=== PATIENT | female | born 1985 | race Caucasian/White ===

== ENCOUNTER 2017-11-10 23:33 | Emergency (ER) | payer SELFPAY | END 2017-11-11 00:32 | disposition home or self-care (01) | LOC: ERS 23:33 | DX: L50.9 Urticaria, unspecified (principal); G40.909 Epilepsy, unspecified, not intractable, without status epilepticus; G43.909 Migraine, unspecified, not intractable, without status migrainosus; J45.909 Unspecified asthma, uncomplicated | CPT/HCPCS: 99282 ==

== ENCOUNTER 2018-06-03 17:08 | Emergency (ER) | payer SELFPAY ==
[2018-06-03 17:31] LABS: Bilirubin Negative (Negative); Blood, Urine Negative (Negative); Clarity CLEAR (Clear); Glucose, Urine (Dipstick) Negative (Negative); Leukocyte Small (Negative); Nitrite Negative (Negative); Protein, Urine (Dipstick) Negative (Neg-Trace); Urobilinogen 0.2 mg/dL (0.2-1.0); pH, Urine 7.5 (5.0-9.0)
[2018-06-03 17:33] LABS: Bacteria/HPF None Seen HPF (None Seen); Hyaline Casts/LPF 0-3 HYALINE CAST LPF (0-3 Hyaline); Pathc Cast-AUWi Flag 0.29 (0-2.49); RBC/HPF 0-3 HPF (0-3); Squamous Epithelial 0-3 HPF (0-3); WBC/HPF 0-3 HPF (0-3)
[2018-06-03 17:38] LABS: Pregnancy Test - Urine (BHCG) Negative (Negative); Pregu Control Bar Appear? YES (CONTROL BAR); Specific Gravity 1.005 (1.002-1.036); Specific Gravity, Urine 1.005 (1.002-1.036)
[2018-06-03 17:39] LABS: Pregu Control Background? CLEAR/WHITE (CLR/WHITE)
== END 2018-06-03 17:38 | disposition home or self-care (01) ==
LOC: ERS 17:08
DX: M54.5 Low back pain (principal); J45.909 Unspecified asthma, uncomplicated; G40.909 Epilepsy, unspecified, not intractable, without status epilepticus; G43.909 Migraine, unspecified, not intractable, without status migrainosus
CPT/HCPCS: 81003; 81015; 81025; 99283

== ENCOUNTER 2018-07-04 20:41 | Emergency (ER) | payer SELFPAY ==
[2018-07-04 21:47] LABS: Bilirubin Negative (Negative); Blood, Urine Negative (Negative); Clarity CLEAR (Clear); Glucose, Urine (Dipstick) Negative (Negative); Leukocyte Trace (Negative); Nitrite Negative (Negative); Protein, Urine (Dipstick) Negative (Neg-Trace); Specific Gravity, Urine 1.012 (1.002-1.036); Urobilinogen 0.2 mg/dL (0.2-1.0); pH, Urine 6.5 (5.0-9.0)
[2018-07-04 21:48] LABS: Bacteria/HPF None Seen HPF (None Seen); Hyaline Casts/LPF 4-6 HYALINE CAST LPF (0-3 Hyaline); Pathc Cast-AUWi Flag 1.01 (0-2.49); Pregnancy Test - Urine (BHCG) Negative (Negative); Pregu Control Background? CLEAR/WHITE (CLR/WHITE); Pregu Control Bar Appear? YES (CONTROL BAR); RBC/HPF 0-3 HPF (0-3); Specific Gravity 1.012 (1.002-1.036); Squamous Epithelial 0-3 HPF (0-3)
[2018-07-04 21:55] LABS: Amphetamine Not Detected (NotDetected); Barbiturates Screen Not Detected (NotDetected); Benzodiazepine Screen Not Detected (NotDetected); Cocaine Metabolite Screen Not Detected (NotDetected); Medtox Control Line Valid? VALID (VALID); Medtox Reader # READER 4; Methadone Not Detected (NotDetected); Methamphetamine Not Detected (NotDetected); Opiate Screen Not Detected (NotDetected); Oxycodone Screen Not Detected (NotDetected); Phencyclidine (PCP) Not Detected (NotDetected); THC/Cannabinoid Screen Not Detected (NotDetected); Tricyclic Screen Not Detected (NotDetected)
--- NOTE | 2018-07-04 22:12 | RAD ---
SINGLE VIEW OF THE CHEST: 07/04/18 COMPARISON: None. HISTORY: Seizure and cough FINDINGS: Single view of the chest shows a normal sized cardiomediastinal silhouette. There is no evidence of c onsolidation, mass, or pleural effusion. The bones are unremarkable. IMPRESSION: No evidence of acute cardiopulmonary disease. POS: [facility]
== END 2018-07-04 22:32 | disposition left against medical advice (07) ==
LOC: ERS 20:41
DX: G40.909 Epilepsy, unspecified, not intractable, without status epilepticus (principal); G43.909 Migraine, unspecified, not intractable, without status migrainosus; F90.9 Attention-deficit hyperactivity disorder, unspecified type; Z91.19 Patient's noncompliance with other medical treatment and regimen; F41.9 Anxiety disorder, unspecified; J45.909 Unspecified asthma, uncomplicated
CPT/HCPCS: 71045; 80306; 81003; 81015; 81025; 93005

== ENCOUNTER 2018-09-03 14:21 | Emergency (ER) | payer SELFPAY ==
[2018-09-03] MEDS ORDERED: Ketorolac Tromethamine 30 MG/ML VIAL ONE (15:58)
[2018-09-03] MEDS ORDERED: diphenhydrAMINE 50 MG/ML VIAL ONE (15:58)
[2018-09-03] MEDS ORDERED: Metoclopramide HCl 10 MG/2 ML VIAL ONE (15:58)
== END 2018-09-03 17:35 | disposition home or self-care (01) ==
LOC: ERS 14:21
DX: R51 Headache (principal); F17.200 Nicotine dependence, unspecified, uncomplicated
CPT/HCPCS: 96365; 96375; J1200; J1885; J2765

== ENCOUNTER 2018-10-01 10:49 | Emergency (ER) | payer SELFPAY ==
[2018-10-01] MEDS ORDERED: Ondansetron PF 4 MG/2 ML Vial ONE (11:38)
[2018-10-01 11:42] LABS: #Eosinphils 0.1 thou/uL (0.0-0.7); #Lymphocytes 1.1 thou/uL (1.20-3.40); #Monocytes 0.4 thou/uL (0.11-0.59); #Neutrophils 4.2 thou/uL (1.40-6.50); %Basophils 0.8 % (0.0-1.0); %Eosinophils 1.4 % (0.0-10.0); %Lymphocytes 19.3 % (21.0-51.0); %Monocytes 6.2 % (0.0-10.0); %Neutrophils 72.4 % (42.0-75.0); Mean Corpuscular HGB CONC 31.5 g/dL (32.0-36.0); Mean Corpuscular Hemoglobin 26.9 pg (27.0-31.0); Mean Corpuscular Volume 85.4 fL (78.0-98.0); Mean Platelet Volume 7.9 fL (7.4-10.4); Platelet Count 249 thou/uL (130-400); RBC Distribution Width 14.5 % (11.5-14.5); White Blood Cell (WBC) Count 5.8 thou/uL (4.8-10.8)
[2018-10-01 11:45] LABS: BHCG - Serum Negative (NEGATIVE); Pregs Control Background? CLEAR/WHITE (CLR/WHITE); Pregs Control Bar Appear? YES (CONTROL BAR)
[2018-10-01 12:02] LABS: ALT (SGPT) 11 U/L (8-55); AST (SGOT) 16 U/L (5-34); Albumin 3.8 g/dL (3.5-5.0); Alkaline Phosphatase 84 U/L (40-150); Anion Gap 15 mmol/L (10-20); BUN (Urea Nitrogen) 7 mg/dL (7.0-18.7); Bilirubin, Total 0.5 mg/dL (0.2-1.2); Calc. Creatinine Clearance 0 mL/min (70-130); Calcium 9.1 mg/dL (7.8-10.44); Carbon Dioxide 19 mmol/L (22-29); Chloride 108 mmol/L (98-107); Estimated GFR-MDRD Greater than 90; Globulin 3.1 g/dL (2.4-3.5); Glucose 93 mg/dL (70-105); Lipase 24 U/L (8-78); Potassium 4.4 mmol/L (3.5-5.1); Protein, Total 6.9 g/dL (6.0-8.3); Sodium 138 mmol/L (136-145)
[2018-10-01 12:14] LABS: Bilirubin Negative (Negative); Blood, Urine Negative (Negative); Clarity TURBID (Clear); Glucose, Urine (Dipstick) Negative (Negative); Leukocyte Large (Negative); Nitrite Positive (Negative); Protein, Urine (Dipstick) Negative (Neg-Trace); Specific Gravity, Urine 1.013 (1.002-1.036); Urobilinogen 0.2 mg/dL (0.2-1.0)
[2018-10-01 12:19] LABS: Bacteria/HPF 4+ HPF (None Seen); RBC/HPF 0-3 HPF (0-3)
[2018-10-01 12:20] LABS: Pathc Cast-AUWi Flag 13.37 (0-2.49)
[2018-10-01 12:21] LABS: Hyaline Casts/LPF 0-3 HYALINE CAST LPF (0-3 Hyaline); Manual Microscopic Reviewed? No Path Casts Seen
== END 2018-10-01 13:17 | disposition home or self-care (01) ==
LOC: ERS 10:49
DX: N30.90 Cystitis, unspecified without hematuria (principal); R19.7 Diarrhea, unspecified; F90.9 Attention-deficit hyperactivity disorder, unspecified type; F17.200 Nicotine dependence, unspecified, uncomplicated; J45.909 Unspecified asthma, uncomplicated; G40.909 Epilepsy, unspecified, not intractable, without status epilepticus
CPT/HCPCS: 80053; 81003; 81015; 83690; 84703; 85025; 96361; 96374; J2405

== ENCOUNTER 2019-02-12 02:44 | Emergency (ER) | payer SELFPAY ==
--- NOTE | 2019-02-12 07:53 | RAD ---
CHEST 1 VIEW: Date: 02/12/19 HISTORY: Dyspnea. Anxiety. COMPARISON: 07/04/18. FINDINGS: Cardiac silhouette is magnified by projection. Pulmonary vasculature is unremarkable. Mediastinum is midline. No confluent air space consolidation or evidence of pneumothorax. IMPRESSION: No active cardiopulmonary abnormalities are demonstrated. POS: [facility]
== END 2019-02-12 03:45 | disposition home or self-care (01) ==
LOC: ERS 02:44
DX: R07.89 Other chest pain (principal); G43.909 Migraine, unspecified, not intractable, without status migrainosus; J45.909 Unspecified asthma, uncomplicated; G40.909 Epilepsy, unspecified, not intractable, without status epilepticus; F17.200 Nicotine dependence, unspecified, uncomplicated; F90.9 Attention-deficit hyperactivity disorder, unspecified type; F41.9 Anxiety disorder, unspecified
CPT/HCPCS: 71045; 93005

== ENCOUNTER 2019-03-15 21:08 | Emergency (ER) | payer SELFPAY ==
[2019-03-15 21:54] LABS: #Eosinphils 0.3 thou/uL (0.0-0.7); #Lymphocytes 1.9 thou/uL (1.20-3.40); #Monocytes 0.6 thou/uL (0.11-0.59); #Neutrophils 5.1 thou/uL (1.40-6.50); %Basophils 0.5 % (0.0-1.0); %Eosinophils 3.8 % (0.0-10.0); %Lymphocytes 24.5 % (21.0-51.0); %Monocytes 7.1 % (0.0-10.0); %Neutrophils 64.2 % (42.0-75.0); Hemoglobin 9.8 g/dL (12.0-16.0); Mean Corpuscular HGB CONC 32.5 g/dL (32.0-36.0); Mean Corpuscular Hemoglobin 28.1 pg (27.0-31.0); Mean Corpuscular Volume 86.5 fL (78.0-98.0); Platelet Count 265 thou/uL (130-400); RBC Distribution Width 14.9 % (11.5-14.5); Red Blood Cell (RBC) Count 3.48 mill/uL (4.20-5.40); White Blood Cell (WBC) Count 7.9 thou/uL (4.8-10.8)
[2019-03-15 22:14] LABS: ALT (SGPT) 12 U/L (8-55); AST (SGOT) 13 U/L (5-34); Albumin 3.8 g/dL (3.5-5.0); Alkaline Phosphatase 68 U/L (40-150); Anion Gap 11 mmol/L (10-20); BUN (Urea Nitrogen) 15 mg/dL (7.0-18.7); Bilirubin, Total 0.2 mg/dL (0.2-1.2); Calc. Creatinine Clearance 0 mL/min (70-130); Calcium 8.7 mg/dL (7.8-10.44); Carbon Dioxide 23 mmol/L (22-29); Chloride 108 mmol/L (98-107); Estimated GFR-MDRD Greater than 90; Globulin 2.6 g/dL (2.4-3.5); Glucose 83 mg/dL (70-105); Potassium 3.8 mmol/L (3.5-5.1); Protein, Total 6.4 g/dL (6.0-8.3); Sodium 138 mmol/L (136-145)
--- NOTE | 2019-03-20 12:47 | EKG ---
Test Reason : Blood Pressure : / mmHG Vent. Rate : 081 BPM Atrial Rate : 081 BPM P-R Int : 150 ms QRS Dur : 084 ms QT Int : 360 ms P-R-T Axes : 062 079 045 degrees QTc Int : 418 ms Normal sinus rhythm Normal ECG Confirmed by SIDNEY QUINONES MD ([id number]), news video editor DOMINGUEZ BUCK ([id number]) on 03/20/2019 12:46:13 PM Referred By: Confirmed By:SIDNEY QUINONES MD
== END 2019-03-15 22:38 | disposition home or self-care (01) ==
LOC: ERS 21:08
DX: D64.9 Anemia, unspecified (principal); G40.909 Epilepsy, unspecified, not intractable, without status epilepticus; J45.909 Unspecified asthma, uncomplicated; F90.9 Attention-deficit hyperactivity disorder, unspecified type; F17.210 Nicotine dependence, cigarettes, uncomplicated
CPT/HCPCS: 36415; 80053; 85025; 93005

== ENCOUNTER 2019-03-20 22:39 | Emergency (ER) | payer SELFPAY ==
[2019-03-20 23:24] LABS: #Basophils 0.1 thou/uL (0.0-0.2); #Eosinphils 0.1 thou/uL (0.0-0.7); #Lymphocytes 1.7 thou/uL (1.20-3.40); #Monocytes 0.6 thou/uL (0.11-0.59); #Neutrophils 3.5 thou/uL (1.40-6.50); %Basophils 0.9 % (0.0-1.0); %Eosinophils 1.9 % (0.0-10.0); %Lymphocytes 28.4 % (21.0-51.0); %Monocytes 9.3 % (0.0-10.0); %Neutrophils 59.5 % (42.0-75.0); Hemoglobin 9.9 g/dL (12.0-16.0); Mean Corpuscular HGB CONC 32.6 g/dL (32.0-36.0); Mean Corpuscular Hemoglobin 28.1 pg (27.0-31.0); Mean Corpuscular Volume 86.4 fL (78.0-98.0); Mean Platelet Volume 7.4 fL (7.4-10.4); Platelet Count 270 thou/uL (130-400); RBC Distribution Width 14.8 % (11.5-14.5)
[2019-03-20 23:26] LABS: Bacteria/HPF 3+ HPF (None Seen); Bilirubin Negative (Negative); Blood, Urine Negative (Negative); Clarity Turbid (Clear); Glucose, Urine (Dipstick) Normal (Negative); Leukocyte 250 Leu/uL (Negative); Nitrite 2+ (Negative); Protein, Urine (Dipstick) 10 mg/dL (Neg-Trace); Squamous Epithelial 0-3 HPF (0-3); Urobilinogen Normal mg/dL (Less than 2); WBC/HPF 21-50 HPF (0-3)
[2019-03-20 23:40] LABS: BHCG - Serum Negative (NEGATIVE); Pregs Control Background? CLEAR/WHITE (CLR/WHITE); Pregs Control Bar Appear? YES (CONTROL BAR)
[2019-03-20 23:44] LABS: ALT (SGPT) 19 U/L (8-55); AST (SGOT) 21 U/L (5-34); Alkaline Phosphatase 66 U/L (40-150); Anion Gap 11 mmol/L (10-20); BUN (Urea Nitrogen) 14 mg/dL (7.0-18.7); Bilirubin, Total 0.2 mg/dL (0.2-1.2); Calc. Creatinine Clearance 0 mL/min (70-130); Calcium 8.8 mg/dL (7.8-10.44); Carbon Dioxide 23 mmol/L (22-29); Chloride 109 mmol/L (98-107); Estimated GFR-MDRD Greater than 90; Globulin 2.6 g/dL (2.4-3.5); Glucose 101 mg/dL (70-105); Potassium 4.1 mmol/L (3.5-5.1); Protein, Total 6.6 g/dL (6.0-8.3); Sodium 139 mmol/L (136-145)
[2019-03-21] MEDS ORDERED: Ketorolac Tromethamine 30 MG/ML VIAL ONE (01:16)
[2019-03-21] MEDS ORDERED: cefTRIAXone\\ROCEPHIN 1 GM VIAL ONE (01:56)
[2019-03-21] MEDS ORDERED: Ondansetron PF 4 MG/2 ML Vial ONE (02:00)
[2019-03-21] MEDS ORDERED: Morphine 4 MG/ML VIAL ONE (02:00)
--- NOTE | 2019-03-21 08:31 | ULT ---
PRELIMINARY REPORT/[facility]/EMERGENCY AFTER HOURS PROCEDURE EXAM: US Pelvis Limited, Transabdominal and US Pelvis, Transvaginal EXAM DATE/TIME: 03/21/2019 12:23 AM CLINICAL HISTORY: 33 years old, female; Pelvic pain TECHNIQUE: Imaging protocol: Real-time transabdominal and transvaginal pelvic ultrasound (limited) with image do cumentation. Transvaginal imaging was used for better evaluation of the endometrium and adnexa. COMPARISON: No relevant prior studies available. FINDINGS: Uterus/cervix: Uterus measures 8.8 x 5.3 x 6.6 cm. Endometrial thickness measures approximately 2 mm. There are benign cervical Nabothian cysts. Right adnexa: Right ovary measures 2.5 x 1.6 x 2.1 cm. Left adnexa: The left ovary measures 2.9-1.3 x 1.9 cm. IMPRESSION: Essentially unremarkable pelvic ultrasound. Benign nabothian cysts noted. Thank you for allowing us to participate in the care of your patient. Dictated and Authenticated by: Phu Driscoll MD 03/21/2019 1:43 AM Central Time ([place] & [place]) FINAL REPORT TRANSABDOMINAL AND TRANSVAGINAL PELVIC ULTRASOUND WITH GRAYSCALE AND COLORFLOW AND SPECTRAL DOPPLER I MAGING: I agree with the preliminary report given by Phu Cruz of [facility]. Flow is demonstrated to both ovaries. CODE QA POS: [facility]
[2019-03-24 00:53] LABS: Chlamydia by PCR Not Detected (NotDetected); GC by PCR Not Detected (NotDetected)
== END 2019-03-21 02:45 | disposition home or self-care (01) ==
LOC: ERS 22:39
DX: N12 Tubulo-interstitial nephritis, not specified as acute or chronic (principal); G40.909 Epilepsy, unspecified, not intractable, without status epilepticus; G43.909 Migraine, unspecified, not intractable, without status migrainosus; J45.909 Unspecified asthma, uncomplicated; F41.9 Anxiety disorder, unspecified; F90.9 Attention-deficit hyperactivity disorder, unspecified type; F17.210 Nicotine dependence, cigarettes, uncomplicated
CPT/HCPCS: 76856; 80053; 81003; 81015; 84703; 85025; 87077; 87086; 87186; 87480; 87491; 87510; 87591; 87660; 96374; 96375; J0696; J1885; J2270; J2405

== ENCOUNTER 2019-09-20 17:08 | Emergency (ER) | payer SELFPAY ==
[2019-09-20 19:41] LABS: #Basophils 0.1 thou/uL (0.0-0.2); #Eosinphils 0.1 thou/uL (0.0-0.7); #Lymphocytes 1.7 thou/uL (1.20-3.40); #Monocytes 0.4 thou/uL (0.11-0.59); #Neutrophils 3.8 thou/uL (1.40-6.50); %Basophils 1.1 % (0.0-1.0); %Eosinophils 2.1 % (0.0-10.0); %Lymphocytes 27.9 % (21.0-51.0); %Neutrophils 61.9 % (42.0-75.0); Hemoglobin 11.2 g/dL (12.0-16.0); Mean Corpuscular HGB CONC 32.4 g/dL (32.0-36.0); Mean Corpuscular Hemoglobin 27.4 pg (27.0-31.0); Mean Corpuscular Volume 84.6 fL (78.0-98.0); Mean Platelet Volume 7.8 fL (7.4-10.4); Platelet Count 230 thou/uL (130-400); RBC Distribution Width 14.8 % (11.5-14.5); Red Blood Cell (RBC) Count 4.09 mill/uL (4.20-5.40); White Blood Cell (WBC) Count 6.1 thou/uL (4.8-10.8)
--- NOTE | 2019-09-20 19:42 | RAD ---
XR Chest Pa Lat STANDARD HISTORY: Chest pain COMPARISON: 02/27/2009 FINDINGS: The heart size is normal. The lungs are well expanded without focal areas of consolidation, pneumothorax or pleural effusions. IMPRESSION: No radiographic evidence of acute cardiopulmonary process.
[2019-09-20 20:00] LABS: ALT (SGPT) 22 U/L (8-55); AST (SGOT) 22 U/L (5-34); Albumin 4.3 g/dL (3.5-5.0); Alkaline Phosphatase 81 U/L (40-110); Anion Gap 11 mmol/L (10-20); BUN (Urea Nitrogen) 11 mg/dL (7.0-18.7); Bilirubin, Total 0.2 mg/dL (0.2-1.2); Calc. Creatinine Clearance 0 mL/min (70-130); Calcium 9.1 mg/dL (7.8-10.44); Carbon Dioxide 26 mmol/L (22-29); Chloride 109 mmol/L (98-107); Estimated GFR-MDRD Greater than 90; Globulin 2.9 g/dL (2.4-3.5); Glucose 92 mg/dL (70-105); Potassium 3.9 mmol/L (3.5-5.1); Protein, Total 7.2 g/dL (6.0-8.3); Sodium 142 mmol/L (136-145)
[2019-09-20] MEDS ORDERED: Ketorolac Tromethamine 60 MG/2 ML VIAL ONE (21:25)
== END 2019-09-20 21:50 | disposition home or self-care (01) ==
LOC: ERS 17:08
DX: R07.89 Other chest pain (principal); R51 Headache; J45.909 Unspecified asthma, uncomplicated; G40.909 Epilepsy, unspecified, not intractable, without status epilepticus; F17.210 Nicotine dependence, cigarettes, uncomplicated; F41.9 Anxiety disorder, unspecified; F90.9 Attention-deficit hyperactivity disorder, unspecified type
CPT/HCPCS: 36415; 71046; 80053; 84484; 85025; 93005; 96372; J1885